=== PATIENT | female | born 1985 | race African-American/Black ===

== ENCOUNTER 2019-03-04 21:46 | Emergency (ER) | payer MEDICAID, OTHER ==
[~2019-03-04] VITALS: Ht 165.1 cm; Wt 67.0 kg
[~2019-03-04 21:46] MED LIST: MECL-109 PO; [UNRECOGNIZED DRUG - CODE] PO
[2019-03-04] MEDS ORDERED: KETOROLAC 30MG/ML VIAL IM ONE (23:45)
[2019-03-05] MEDS ORDERED: HYDROCODONE/ACETAMINOPHEN 5/325MG TABLET PO ONE (02:30)
[2019-03-05] MEDS ORDERED: TETANUS, DIPHTHERIA, PERTUSSIS VAC/PF 0.5ML (>7YR OLD) IM ONE (02:30)
[2019-03-05 02:44] VITALS: BP 122/79
== END 2019-03-05 02:25 | disposition home or self-care (01) ==
LOC: ER 21:46
DX: S01.81XA Laceration without foreign body of other part of head, initial encounter (principal); S09.8XXA Other specified injuries of head, initial encounter; S80.11XA Contusion of right lower leg, initial encounter; S80.12XA Contusion of left lower leg, initial encounter; V43.52XA Car driver injured in collision with other type car in traffic accident, initial encounter; Y93.89 Activity, other specified; Y92.524 Gas station as the place of occurrence of the external cause
CPT/HCPCS: 12011; 70450; 70486; 73562; 81025; 90471; 90715; 96372; 99284; J1885